=== PATIENT | female | born 1980 | race Hispanic/Latino ===

== ENCOUNTER 2017-01-03 09:52 | Day surgery (SDC) | payer BC ==
[2017-01-03] MEDS ORDERED: LACTATED RINGERS 1,000 ML ONE (10:43)
[2017-01-03] MEDS ORDERED: PEPCID IV ONE (10:55)
--- NOTE | 2017-01-03 10:57 | Anesthesia Day of Surgery ---
Anesthesia Day of Surgery - Day of Surgery Patient Examined: Yes Patient H&P Reviewed: Yes Patient is NPO: Yes
--- NOTE | 2017-01-03 10:57 | Anesthesia Consultation ---
Anesthesia Consult and Med Hx Date of service: 01/03/17 - Airway Anesthetic Teeth Evaluation: Good, Bridges (lower front) ROM Head & Neck: Adequate Mental/Hyoid Distance: Adequate Mallampati Class: Class I Intubation Access Assessment: Good - Pulmonary Exam CTA: Yes - Cardiac Exam Cardiac Exam: RRR - Pre-Operative Health Status ASA Pre-Surgery Classification: ASA2 Proposed Anesthetic Plan: General - Pulmonary Hx Smoking: Yes (3 CIG PER DAY) Hx Asthma: Yes ( CHILD ONLY) Hx Sleep Apnea: No (KEVIN PRE SCREEN NEGATIVE) - Cardiovascular System Hx Hypertension: No - Central Nervous System Hx Seizures: No (Seizure meds are to control resting tremors) Hx Back Pain: Yes Hx Psychiatric Problems: Yes (depression) - Gastrointestinal Hx Gastroesophageal Reflux Disease: No - Endocrine Hx Renal Disease: Yes (h/o kidney stones) Hx Insulin Dependent Diabetes: No - Hematic Hx Anemia: No Hx Sickle Cell Disease: No - Other Systems Hx Alcohol Use: No Hx Substance Use: No Hx Cancer: No Hx Obesity: No
[2017-01-03] MEDS ORDERED: LACTATED RINGERS 1,000 ML IV SCH (11:00)
[2017-01-03] MEDS ORDERED: PEPCID IV NR (11:00)
[2017-01-03] MEDS ORDERED: VERSED IV NR (11:00)
[2017-01-03] MEDS ORDERED: TRANSDERM-SCOP TD NR (11:00)
[2017-01-03] MEDS ORDERED: ANCEF/STERILE WATER 2 GM/20 ML IV NR (11:00)
[2017-01-03] MEDS ORDERED: ceFAZolin 2 GM in NACL 0.9% 100 ML IV ONE (11:16)
--- NOTE | 2017-01-03 11:18 | Short Stay Summary ---
Short Stay Documentation Date of service: 01/03/17 - History H&P: obtained from office - Allergies and Medications Current Medications: Allergies No Known Allergies Allergy (Verified 12/26/16 12:09) Home Medications Medication Instructions Recorded Confirmed Last Taken Type Duloxetine HCl [Cymbalta] 60 mg PO DAILY 12/26/16 01/03/17 01/02/17 06:00 History Ibuprofen [Motrin 600 MG tab] 600 mg PO DAILY 12/26/16 01/03/17 12/27/16 History Lactobacillus Acidophilus 1 tab PO DAILY 12/26/16 01/03/17 01/01/17 History [Acidophilus Probiotic] Primidone [Mysoline] 250 mg PO TID 12/26/16 01/03/17 12/27/16 History oxyCODONE /ACETAMINOPHEN [Percocet 1 tab PO PRN PRN 12/26/16 01/03/17 01/02/17 20:30 History 5/325 mg] Active Medications Cefazolin Sodium (Ancef/Sterile Water 2 Gm/20 Ml) 2 gm IV PREOP NR Stop: 01/03/17 14:00 Famotidine (Pepcid) 20 mg IV PREOP NR Stop: 01/03/17 14:00 Last Admin: 01/03/17 11:06 Dose: 20 mg Lactated Ringer's (Lactated Ringers) 1,000 mls @ 75 mls/hr IV DIRECT SKIP Stop: 01/03/17 14:00 Last Admin: 01/03/17 11:00 Dose: 75 mls/hr Cefazolin Sodium 2 gm/ Sodium (Chloride) 100 mls @ 200 mls/hr IV ONCE ONE Stop: 01/03/17 11:45 Midazolam HCl (Versed) 2 mg IV PREOP NR Stop: 01/03/17 23:59 Last Admin: 01/03/17 11:05 Dose: 2 mg Scopolamine (Transderm-Scop) 1 each TD PREOP NR Stop: 01/03/17 14:00 Last Admin: 01/03/17 11:06 Dose: 1 each - Brief post op/procedure progress note Date of procedure: 01/03/17 Pre-op diagnosis: right renal stone Post-op diagnosis: same Procedure: right renal stone Anesthesia: GETA Findings: mod vis Surgeon: CASSIE ORTEGA Estimated blood loss: none Pathology: none Condition: stable - Hospital course Hospital course: or pacu home - Disposition Condition at discharge: Good Disposition: DISCHARGED TO HOME OR SELFCARE Short Stay Discharge Plan Activity: advance as tolerated Diet: advance as tolerated Follow up with: CASSIE ORTEGA MD [Staff Physician] - 7 Days
[2017-01-03] MEDS ORDERED: MORPHINE IV ONE (12:30)
[2017-01-03] MEDS ORDERED: DECADRON ONE (12:36)
[2017-01-03] MEDS ORDERED: ZOFRAN ONE (12:36)
[2017-01-03] MEDS ORDERED: DIPRIVAN 10 MG/ML IV ONE (12:36)
[2017-01-03] MEDS ORDERED: XYLOCAINE MPF 2% ONE (12:36)
[2017-01-03] MEDS ORDERED: SUBLIMAZE ONE (12:36)
[2017-01-03] MEDS ORDERED: DILAUDID ONE (14:14)
[2017-01-03] MEDS: DILAUDID IV PRN ×3 (14:18→14:48)
--- NOTE | 2017-01-03 14:27 | Post Anesthesia Evaluation ---
- Post Anesthesia Evaluation Patient Participated: Yes Airway Patent: Yes Stable Respiratory Function: Yes Nausea/Vomiting: No Temp > 96.8F: Yes Pain Manageable: Yes Adequeate Hydration: Yes Anesthesia Complications: No Block Receding Appropriately: Not Applicable Patient on Ventilator: No
[2017-01-03 15:21] VITALS: BP 107/72
--- NOTE | 2017-01-06 23:48 | Operative Report ---
PREOPERATIVE DIAGNOSIS: Right renal stone. POSTOPERATIVE DIAGNOSIS: Right renal stone. PROCEDURE: Right renal ESWL. ANESTHESIA: General. FINDINGS: Moderate visualization. SURGEON: Regino Salmeron M.D. ESTIMATED BLOOD LOSS: Minimal. PATHOLOGY SPECIMEN: CONDITION: Stable. CLINICAL INDICATIONS: The patient had right renal stones 5 and 2 mm. The patient had some low back pain, but was counseled that this is unlikely the source of the back pain and probably would not improve the back pain. Antibiotics, SCDs. Was counseled on some limitations and options and she wanted to proceed with the procedure. DESCRIPTION OF PROCEDURE: The patient was transferred to the OR suite in supine position, anesthesia, dorsal anesthesia, and left in the supine position. Biplanar fluoroscopy was used to target the stone with an F2. There was good visualization of the stone. A total of 2500 shocks were delivered at maximum of 4.0 kilovolts. Intermittent repositioning done as necessary. At the end of the procedure, there was mild decrease in density of the stone. The patient was awakened and transferred to the PACU in good and stable condition. JOB# [id number] ATS/NTS
== END 2017-01-03 15:52 | disposition home or self-care (01) ==
LOC: OR 09:52
PROVIDERS: ATTEND Urology
DX: N20.0 Calculus of kidney (principal); F17.210 Nicotine dependence, cigarettes, uncomplicated; J45.909 Unspecified asthma, uncomplicated; F32.9 Major depressive disorder, single episode, unspecified; Z90.49 Acquired absence of other specified parts of digestive tract; Z90.710 Acquired absence of both cervix and uterus; Z98.51 Tubal ligation status; Z83.511 Family history of glaucoma
CPT/HCPCS: 50590; J0690; J1100; J1170; J2250; J2270; J2405; J2704; J3010; J7120